=== PATIENT | male | born 1940 | race Caucasian/White ===

== ENCOUNTER → 2016-09-08 | Outpatient (CLI) | payer MEDICARE, OTHER ==
[~2016-09-08] MED LIST: AMLO-147 PO; ASPI-664 PO; METO50TA16 PO; OMEG-119 PO; PRAV40TA76 PO; RANO500T2 PO; UBID50CA29 PO
--- NOTE | 2016-09-08 17:12 | RADRPT ---
PROCEDURE: US right lower extremity veins. CLINICAL INDICATION: Right leg pain and swelling. TECHNIQUE: Multiple longitudinal and transverse images of the right lower extremity veins were obt ained with vences scale and color Doppler imaging. The common femoral vein, femoral vein, and poplitea l vein were evaluated. 2D grayscale measurements with compression sonography, pulsed Doppler, color Doppler, and pulsed Doppler with augmentation. COMPARISON: No prior studies are available for comparison. FINDINGS: The right common femoral, femoral and popliteal veins are normally compressible throughout. Color f low demonstrates normal filling of the vessels. Normal waveforms are visualized and there is normal response to augmentation. IMPRESSION: 1. No evidence of deep vein thrombosis involving the right lower extremity. RPTAT: QQ .Nikko Steele MD, MD Date Time Electronically viewed and signed by .Nikko Steele MD, on 09/08/2016 17:12 .R/
== END | disposition home or self-care (01) ==
LOC: VAS 15:57
PROVIDERS: ATTEND Orthopaedic Surgery Sports Medicine
DX: R22.41 Localized swelling, mass and lump, right lower limb (principal)
CPT/HCPCS: 93971